=== PATIENT | male | born 1980 | race African-American/Black ===

== ENCOUNTER 2017-02-16 14:07 | Emergency (ER) | payer OTHER ==
[2017-02-16 14:16] VITALS: TEMP 97.9
[2017-02-16] MEDS ORDERED: NALOXONE 0.4 MG/ML 1 ML VIAL IV STA (14:22)
--- NOTE | 2017-02-16 14:22 | ED ---
Overdose HPI - General Chief Complaint: Overdose Stated Complaint: Poss Overdose Time Seen by Provider: 02/16/17 14:10 Source: patient, police, EMS Mode of arrival: EMS Limitations: no limitations - History of Present Illness Initial Comments: This 36-year-old -[place] male presents after a heroin overdose. He does relate that he utilizes heroin intravenously. The police were apparently first on the scene and did pick him up for a warrant as well. He is currently under their custody. He has no medical complaints. He is very drowsy and is a poor historian. No other complaints or modifying factors. - Related Data Home Medications Medication Instructions Recorded Confirmed No Known Home Medications [No 02/16/17 02/16/17 Known Home Medications] Allergies Allergy/AdvReac Type Severity Reaction Status Date / Time No Known Allergies Allergy Verified 02/16/17 14:43 Review of Systems ROS Statement: Those systems with pertinent positive or pertinent negative responses have been documented in the HPI. ROS Other: All systems not noted in ROS Statement are negative. Past Medical History Past Medical History: No Reported History History of Any Multi-Drug Resistant Organisms: None Reported Past Surgical History: No Surgical Hx Reported Past Psychological History: No Psychological Hx Reported Smoking Status: Current every day smoker Past Alcohol Use History: Daily Past Drug Use History: Heroin, IV Drug Use, Marijuana General Exam - General Exam Comments Initial Comments: GENERAL: The patient is well nourished and well hydrated. VITAL SIGNS: Heart rate, blood pressure, respiratory rate reviewed as recorded in nurse's notes. EYES: Pupils are round and reactive. Extraocular movements are intact. No conjunctival / lid redness or swelling. ENT: No external evidence of injury, swelling, or ecchymosis. Airway is patent. Throat is clear. NECK: Nontender. No swelling or evidence of injury. No subcutaneous emphysema. Trachea is midline. No thyroid mass. HEART: Regular rate and rhythm. Good peripheral pulses. LUNGS/CHEST: Breath sounds clear and equal bilaterally. No rales, rhonchi, or wheezes. No ecchymosis, subcutaneous emphysema, or tenderness. ABDOMEN: Abdomen soft without tenderness. No palpable masses or organomegaly. No peritoneal signs. No abdominal wall swelling or ecchymosis. EXTREMITIES: No extremity tenderness. Normal muscle tone and function. No thoracolumbar tenderness. NEUROLOGIC: Sensation is grossly intact. Cranial nerve exam reveals face is symmetrical, tongue is midline, speech is clear. He is very drowsy but will wake up with slight stimulation verbally. SKIN: No abrasions or ecchymosis is noted. No induration or masses noted. PSYCHIATRIC: Alert and oriented. Appears very drowsy. Limitations: no limitations Course Vital Signs 02/16/17 14:11 Temperature 97.9 F Pulse Rate 80 Respiratory 18 Rate Blood Pressure 144/81 O2 Sat by Pulse 96 Oximetry Medical Decision Making - Medical Decision Making The patient was seen and examined. He did receive 0.4 mg of Narcan intravenously. He did wake up quite well and is alert and oriented on recheck and in no distress. He is watched for a while in the emergency department and his mental status did not change. He was counseled extensively regarding heroin abuse and abstinence. He leaves in the police custody. Disposition Clinical Impression: Heroin overdose Disposition: HOME SELF-CARE Condition: Good Instructions: Narcotic Abuse (ED), Opioid Overdose (ED) Referrals: None,Stated [Primary Care Provider] - 1-2 days Time of Disposition: 15:03
[2017-02-16 15:12] VITALS: BP 123/83; PULSE 65; RESP 16
== END 2017-02-16 15:17 | disposition home or self-care (01) ==
LOC: EC 14:07
DX: T40.1X1A Poisoning by heroin, accidental (unintentional), initial encounter (principal); F17.200 Nicotine dependence, unspecified, uncomplicated
CPT/HCPCS: 99284 ×2; 96374 ×2; J2310